=== PATIENT | female | born 1955 | race Caucasian/White ===

== ENCOUNTER 2018-09-01 08:14 | Day surgery (SDC) | payer BC ==
[2018-09-01] MEDS: NS 1,000 ML IV (08:52)
[2018-09-01 09:15] LABS: BEDSIDE GLUCOSE 89 MG/DL (80-115)
[2018-09-01] MEDS ORDERED: PROPOFOL 200 MG/20 ML VIAL As Ordered (09:16)
[2018-09-01] MEDS ORDERED: LIDOCAINE 2% INJ 100 MG/5 ML SDV (FOR ANES.) As Ordered (09:18)
== END 2018-09-01 11:24 | disposition home or self-care (01) ==
LOC: M OPP 08:14
DX: Z12.11 Encounter for screening for malignant neoplasm of colon (principal); K62.1 Rectal polyp; I10 Essential (primary) hypertension; E11.9 Type 2 diabetes mellitus without complications; F32.9 Major depressive disorder, single episode, unspecified; Z87.891 Personal history of nicotine dependence; Z88.1 Allergy status to other antibiotic agents; Z79.4 Long term (current) use of insulin; Z79.899 Other long term (current) drug therapy
CPT/HCPCS: 45380

== ENCOUNTER → 2019-02-07 | Outpatient (REF) | payer BC ==
[~2019-02-07] MED LIST: BASA100I SC; LISI10TA4 PO; LOVA40TA PO; METF10004 PO; SERT-138 PO
[2019-02-09 08:23] LABS: LDL DIRECT 112 mg/dL (0-99)
== END ==
LOC: M LAB REF 16:19
PROVIDERS: ATTEND Nurse Practitioner Adult Health
DX: E78.00 Pure hypercholesterolemia, unspecified (principal)

== ENCOUNTER 2021-06-04 18:11 | Emergency (ER) | payer BC, OTHER ==
[~2021-06-04] VITALS: Ht 167.6 cm; Wt 91.1 kg
[~2021-06-04 18:11] MED LIST changes: +LISI10TA22 PO; -LISI10TA4 PO
[2021-06-04] MEDS ORDERED: INSUDET (18:53)
[2021-06-04] MEDS ORDERED: OZEM2INJ2 (18:53)
[2021-06-04] MEDS ORDERED: JARD1TAB3 (18:53)
--- NOTE | 2021-06-04 19:47 | REP ---
INDICATION: facial trauma. COMPARISON: None. TECHNIQUE: AP, lateral, flexion/extension, bilateral oblique, swimmer's and open mouth views of the cervical spine. FINDINGS: Generalized age-related degenerative changes noted. Alignment is maintained. No acute fracture/compression injury or subluxation. IMPRESSION: No acute fracture/compression injury or subluxation. <Electronically signed by Chris De Leon > 06/04/21 [id number]
--- NOTE | 2021-06-04 20:15 | REPVR ---
PROCEDURE INFORMATION: Exam: CT Head Without Contrast Exam date and time: 06/04/2021 7:27 PM Age: 65 years old Clinical indication: Injury or trauma; Fall; Blunt trauma (contusions or hematomas); Additional info: Facial trauma TECHNIQUE: Imaging protocol: Computed tomography of the head without contrast. Radiation optimization: All CT scans at this facility use at least one of these dose optimization techniques: automated exposure control; mA and/or kV adjustment per patient size (includes targeted exams where dose is matched to clinical indication); or iterative reconstruction. COMPARISON: CR Spine, Cervical 06/04/2021 7:09 PM FINDINGS: Brain: There is mild parenchymal volume loss. Mild confluent white matter changes are demonstrated. Cerebral ventricles: The degree of ventricular dilatation is normal for age and/or degree of atrophy present. Paranasal sinuses: Visualized sinuses are unremarkable. No fluid levels. Mastoid air cells: Visualized mastoid air cells are well aerated. Bones/joints: There is hyperostosis frontalis interna. Soft tissues: Unremarkable. IMPRESSION: 1. There is mild parenchymal volume loss. Mild confluent white matter changes are demonstrated. 2. The degree of ventricular dilatation is normal for age and/or degree of atrophy present. 3. No acute intracranial findings. Electronically signed by: Armando Swann On 06/04/2021 20:15:15 PM
--- NOTE | 2021-06-04 20:20 | REPVR ---
PROCEDURE INFORMATION: Exam: CT Maxillofacial Without Contrast Exam date and time: 06/04/2021 7:27 PM Age: 65 years old Clinical indication: Injury or trauma; Fall; Blunt trauma (contusions or hematomas); Lip/oral cavity; Upper; Additional info: Facial trauma TECHNIQUE: Imaging protocol: Computed tomography images of the face without contrast. Radiation optimization: All CT scans at this facility use at least one of these dose optimization techniques: automated exposure control; mA and/or kV adjustment per patient size (includes targeted exams where dose is matched to clinical indication); or iterative reconstruction. COMPARISON: CR Spine, Cervical 06/04/2021 7:09 PM FINDINGS: Orbital cavity: Orbits are normal. Globes are unremarkable. Bones/joints: The visualized cervical spine demonstrates moderate degenerative changes. Paranasal sinuses: Small retention cysts left maxillary sinus. Soft tissues: Soft tissue edema involving the upper lip consistent with recent trauma. Nasal cavity: Bilateral tanner bullosa, right greater than left. IMPRESSION: Soft tissue edema involving the upper lip consistent with recent trauma. No fracture. Electronically signed by: Armando Swann On 06/04/2021 20:19:58 PM
[2021-06-04] MEDS ORDERED: ACETAMINOPHEN 325 MG TAB PO ONE (22:10)
[2021-06-04 22:12] VITALS: BP 129/74
== END 2021-06-04 22:21 | disposition home or self-care (01) ==
LOC: M ED 18:11
DX: S00.31XA Abrasion of nose, initial encounter (principal); S80.211A Abrasion, right knee, initial encounter; S00.511A Abrasion of lip, initial encounter; W01.198A Fall on same level from slipping, tripping and stumbling with subsequent striking against other object, initial encounter; Y92.009 Unspecified place in unspecified non-institutional (private) residence as the place of occurrence of the external cause; Y93.89 Activity, other specified; Y99.8 Other external cause status; E11.9 Type 2 diabetes mellitus without complications; I10 Essential (primary) hypertension; Z79.4 Long term (current) use of insulin; Z79.899 Other long term (current) drug therapy; Z88.1 Allergy status to other antibiotic agents; Z88.8 Allergy status to other drugs, medicaments and biological substances

== ENCOUNTER → 2025-03-02 | Outpatient (CLI) | payer BC ==
[~2025-03-02] MED LIST changes: +INSUDET; +JARD1TAB3; +OZEM2INJ2
== END ==
LOC: M WUC 15:16
PROVIDERS: ATTEND Nurse Practitioner Adult Health
DX: M16.11 Unilateral primary osteoarthritis, right hip (principal)

== ENCOUNTER → 2025-07-05 | Outpatient (CLI) | payer BC | LOC: M RAD 15:52 | PROVIDERS: ATTEND Nurse Practitioner Adult Health | DX: M25.551 Pain in right hip (principal); M16.11 Unilateral primary osteoarthritis, right hip ==